=== PATIENT | male | born 1950 | race Caucasian/White ===

== ENCOUNTER 2025-03-23 22:35 | Inpatient (IN) | payer MEDICARE, MEDICAID ==
[~2025-03-23] VITALS: Ht 152.4 cm; Wt 40.4 kg
[~2025-03-23 22:35] MED LIST: AMLO5TAB88 MT; ATOR-2 PO; GLIP5TAB22 PO; TAMS-54 PO
[2025-03-23 23:36] LABS: BASOPHILS % 0.6 % (0.0-2.0); EOSINOPHILS % 1.0 % (0.0-5.0); HEMATOCRIT. 45.1 % (42.0-52.0); HEMOGLOBIN. 14.8 g/dL (14.0-18.0); LYMPHOCYTES % 13.5 % (20.0-50.0); MEAN PLATELET VOLUME 7.9 fl (7.4-10.4); MONOCYTES % 5.9 % (2.0-8.0); NEUTROPHILS % 79.0 % (40.0-76.0); PLATELET 402 x1000/uL (130-400); RED BLOOD CELL COUNT 5.08 mill/uL (4.7-6.1); RED CELL DISTRIBUTION WIDTH 14.9 % (11.6-14.6)
[2025-03-23 23:56] LABS: UREA NITROGEN BLOOD 55 mg/dL (9-23)
[2025-03-23 23:57] LABS: ETHANOL BLOOD < 10 mg/dL (<10)
[2025-03-23 23:58] LABS: PHOSPHORUS 2.8 mg/dL (2.5-4.9)
[2025-03-24 00:06] LABS: CREATININE 1.7 mg/dL (0.6-1.3)
[2025-03-24 00:09] LABS: TROPONIN I HIGH SENSITIVITY 57 ng/L (3.0-53)
[2025-03-24] MEDS: SODIUM CHLORIDE 0.9% (SEPSIS BOLUS) IV ONE (00:17)
[2025-03-24] MEDS: PIPERACILLIN/TAZO 3.375G/50ML 50 ML IV SCH ×2 (00:21→05:49)
[2025-03-24] MEDS: VANCOMYCIN 1G PREMIX 200 ML IV NR (01:19)
[2025-03-24 01:36] LABS: INR 1.0
[2025-03-24] MEDS ORDERED: IPRATROPIUM/ALBUTEROL 0.5-3(2.5)MG/3ML NEB HHN PRN (03:15)
[2025-03-24] MEDS ORDERED: CLONIDINE 0.1MG TABLET PO PRN (03:15)
[2025-03-24] MEDS ORDERED: MAGNESIUM/ALUMINUM HYDROXIDE/SIMETHICONE 30ML UDC PO PRN (03:15)
[2025-03-24] MEDS ORDERED: ONDANSETRON HCL 4MG/2ML INJ IV PRN (03:15)
[2025-03-24] MEDS ORDERED: GUAIFENESIN 200MG/10ML SUGAR FREE UDC PO PRN (03:15)
[2025-03-24] MEDS ORDERED: DOCUSATE SODIUM 100MG CAPSULE PO PRN (03:15)
[2025-03-24] MEDS ORDERED: DEXTROSE 50% WATER 50ML SYRINGE IV PRN (03:15)
[2025-03-24] MEDS ORDERED: ACETAMINOPHEN 325MG TABLET PO PRN ×2 (03:15)
[2025-03-24] MEDS: ACETAMINOPHEN 1000 MG/100 ML IV NR (03:52)
[2025-03-24 05:33] VITALS: BP 130/78; PULSE 90; RESP 20; TEMP 36.9
[2025-03-24] MEDS: DEXTROSE 5% WATER 1,000 ML IV ONE (05:49)
[2025-03-24 06:14] LABS: HEMATOCRIT. 41.5 % (42.0-52.0); HEMOGLOBIN. 13.3 g/dL (14.0-18.0); MEAN PLATELET VOLUME 7.8 fl (7.4-10.4); PLATELET 295 x1000/uL (130-400); RED BLOOD CELL COUNT 4.60 mill/uL (4.7-6.1); RED CELL DISTRIBUTION WIDTH 15.1 % (11.6-14.6)
[2025-03-24] MEDS: BLOOD SUGAR DIAGNOSTIC STRIP TEST SCH (06:14)
[2025-03-24 06:27] LABS: CREATININE 1.7 mg/dL (0.6-1.3); TRIGLYCERIDE 74.0 mg/dL (0-150); UREA NITROGEN BLOOD 45.0 mg/dL (9-23)
[2025-03-24 06:28] LABS: LDL CHOLESTEROL 45.0 mg/dL (5-100)
[2025-03-24 06:38] LABS: LACTIC ACID 3.0 mmol/L (0.4-2.0)
[2025-03-24] MEDS: INSULIN LISPRO 100 UNITS/ML SUBCUT SCH (06:45)
[2025-03-24 06:51] LABS: T4 FREE 1.26 ng/dL (0.89-1.76)
[2025-03-24 08:00] VITALS: BP 124/91; PULSE 81; RESP 18; TEMP 36.4; O2SAT 100
[2025-03-24] MEDS: PANTOPRAZOLE SODIUM 40 MG/VIAL IV SCH (09:19)
[2025-03-24] MEDS: AMLODIPINE 5MG TABLET PO SCH (09:20)
[2025-03-24] MEDS: TAMSULOSIN HCL 0.4MG SR CAPSULE PO SCH (09:20)
[2025-03-24] MEDS: ENOXAPARIN 30MG/0.3ML SYR SUBCUT SCH (09:21)
[2025-03-24 12:00] VITALS: BP 118/76; PULSE 85; RESP 17; TEMP 36.5; O2SAT 98
[2025-03-24] MEDS: POTASSIUM CHLORIDE 20MEQ TABLET SR PO SCH (13:20)
[2025-03-24 15:41] LABS: BAND% 3.0 % (1.0-6.0); EOSINOPHILS % MANUAL 1.0 % (0.0-5.0); LYMPHOCYTES % MANUAL 10.0 % (20.0-50.0); MONOCYTES % MANUAL 6.0 % (2.0-8.0); NEUTROPHILS % MANUAL 80.0 % (45.0-75.0); PLATELET ESTIMATE NORMAL
[2025-03-24 16:00] VITALS: BP 106/60; PULSE 70; RESP 18; TEMP 36.4; O2SAT 100
[2025-03-24] MEDS: FINASTERIDE 5MG TABLET PO SCH (17:10)
[2025-03-24 20:00] VITALS: BP 130/70; PULSE 62; RESP 18; TEMP 36.2; O2SAT 97
[2025-03-24] MEDS: ATORVASTATIN CALCIUM 40MG TABLET PO SCH (21:29)
[2025-03-24] MEDS: MIRTAZAPINE 15MG TABLET PO SCH (21:29)
[2025-03-25] VITALS: BP 141/65; PULSE 68; RESP 18; TEMP 36.3; O2SAT 96
[2025-03-25 04:00] VITALS: BP 124/65; PULSE 74; RESP 18; TEMP 36.3; O2SAT 100
[2025-03-25 08:00] VITALS: BP 128/60; PULSE 72; RESP 18; TEMP 36.8; O2SAT 100
[2025-03-25] MEDS: VANCOMYCIN 500MG/100ML IV SCH (08:31)
[2025-03-25 09:02] LABS: BASOPHILS % 0.6 % (0.0-2.0); EOSINOPHILS % 5.2 % (0.0-5.0); HEMATOCRIT. 40.8 % (42.0-52.0); HEMOGLOBIN. 13.2 g/dL (14.0-18.0); LYMPHOCYTES % 16.9 % (20.0-50.0); MEAN PLATELET VOLUME 8.3 fl (7.4-10.4); MONOCYTES % 6.2 % (2.0-8.0); NEUTROPHILS % 71.1 % (40.0-76.0); PLATELET 240 x1000/uL (130-400); RED BLOOD CELL COUNT 4.48 mill/uL (4.7-6.1); RED CELL DISTRIBUTION WIDTH 15.3 % (11.6-14.6)
[2025-03-25 09:33] LABS: CREATININE 1.7 mg/dL (0.6-1.3); UREA NITROGEN BLOOD 49 mg/dL (9-23)
[2025-03-25 09:35] LABS: ASPARTATE AMINOTRANSFERASE 23 IU/L (<34); BILIRUBIN DIRECT 0.2 mg/dL (<=3.0); BILIRUBIN TOTAL 0.5 mg/dL (0.1-1.0); PROTEIN TOTAL 5.5 g/dL (6.0-8.3)
[2025-03-25 12:00] VITALS: BP 125/57; PULSE 73; RESP 17; TEMP 36.7; O2SAT 96
[2025-03-25 16:00] VITALS: BP 108/54; PULSE 70; RESP 18; TEMP 36.5; O2SAT 96
[2025-03-25 20:00] VITALS: BP 153/64; PULSE 69; RESP 19; TEMP 36.5; O2SAT 96
[2025-03-26] VITALS: BP 155/68; PULSE 60; RESP 18; TEMP 36.2; O2SAT 100
[2025-03-26 04:00] VITALS: BP 150/63; PULSE 69; RESP 20; TEMP 36.3; O2SAT 98
[2025-03-26] MEDS: DEXTROSE 5% WATER 1,000 ML IV SCH (06:50)
[2025-03-26 08:00] VITALS: BP 142/60; PULSE 65; RESP 18; TEMP 36.4; O2SAT 96
[2025-03-26 09:16] LABS: BASOPHILS % 0.9 % (0.0-2.0); EOSINOPHILS % 6.2 % (0.0-5.0); HEMATOCRIT. 38.7 % (42.0-52.0); HEMOGLOBIN. 12.8 g/dL (14.0-18.0); LYMPHOCYTES % 20.1 % (20.0-50.0); MEAN PLATELET VOLUME 8.1 fl (7.4-10.4); MONOCYTES % 6.1 % (2.0-8.0); NEUTROPHILS % 66.7 % (40.0-76.0); PLATELET 250 x1000/uL (130-400); RED BLOOD CELL COUNT 4.35 mill/uL (4.7-6.1); RED CELL DISTRIBUTION WIDTH 14.7 % (11.6-14.6)
[2025-03-26 09:30] LABS: CREATININE 1.7 mg/dL (0.6-1.3); UREA NITROGEN BLOOD 39.0 mg/dL (9-23)
[2025-03-26 12:00] VITALS: BP 140/81; PULSE 60; RESP 18; TEMP 36.5; O2SAT 97
[2025-03-26 16:00] VITALS: BP 140/61; PULSE 60; RESP 17; TEMP 36.6; O2SAT 98
[2025-03-26 20:00] VITALS: BP 123/55; PULSE 55; RESP 16; TEMP 36.2; O2SAT 95
[2025-03-26 21:02] LABS: CLARITY URINE TURBID (CLEAR); COLOR URINE YELLOW (YELLOW); GLUCOSE URINE NEGATIVE (NEGATIVE); KETONES URINE NEGATIVE (NEGATIVE); LEUKOCYTE ESTERASE URINE TRACE (NEGATIVE); NITRITE URINE NEGATIVE (NEGATIVE); OCCULT BLOOD URINE 3+ (NEGATIVE); PH URINE 5.5 (4.5-8.0); PROTEIN URINE 2+ (NEGATIVE); SPECIFIC GRAVITY URINE 1.024 (1.005-1.030); UROBILINOGEN URINE 1.0 E.U./dL (0.2-1.0)
[2025-03-26 21:24] LABS: URIC ACID CRYSTALS URINE 1+ /lpf
[2025-03-26 21:25] LABS: BACTERIA URINE TRACE; RBC URINE TNTC /hpf (0-2); SQUAMOUS EPITHELIAL CELL URINE FEW /lpf (RARE/1+); WBC URINE 0-2 /hpf (0-2)
[2025-03-27] VITALS: BP 107/56; PULSE 60; RESP 18; TEMP 36.3; O2SAT 97
[2025-03-27 04:00] VITALS: BP 140/62; PULSE 60; RESP 18; TEMP 36.4; O2SAT 96
[2025-03-27 08:00] VITALS: BP 151/89; PULSE 67; RESP 15; TEMP 36.3; O2SAT 96
[2025-03-27 08:01] LABS: BASOPHILS % 0.7 % (0.0-2.0); EOSINOPHILS % 5.6 % (0.0-5.0); HEMATOCRIT. 36.6 % (42.0-52.0); HEMOGLOBIN. 12.5 g/dL (14.0-18.0); LYMPHOCYTES % 18.1 % (20.0-50.0); MEAN PLATELET VOLUME 8.1 fl (7.4-10.4); MONOCYTES % 7.3 % (2.0-8.0); NEUTROPHILS % 68.3 % (40.0-76.0); PLATELET 208 x1000/uL (130-400); RED BLOOD CELL COUNT 4.19 mill/uL (4.7-6.1); RED CELL DISTRIBUTION WIDTH 14.3 % (11.6-14.6)
[2025-03-27 08:04] LABS: CREATININE 1.6 mg/dL (0.6-1.3); UREA NITROGEN BLOOD 38.0 mg/dL (9-23)
[2025-03-27 12:00] VITALS: BP 163/80; PULSE 64; RESP 14; TEMP 36.2; O2SAT 95
[2025-03-27] MEDS: VANCOMYCIN 750MG/150ML (BAXTER) IV SCH (13:42)
[2025-03-27] MEDS: DEXTROSE 5% WATER 1,000 ML IV SCH (15:05)
[2025-03-27 16:00] VITALS: BP_SYST 130; BP_SYST 161; BP_DIAS 65; BP_DIAS 78; PULSE 65; RESP 16; TEMP 36.2; TEMP 36.5; O2SAT 95
[2025-03-27 20:00] VITALS: BP 129/69; PULSE 79; RESP 18; TEMP 36.9; O2SAT 97
[2025-03-27] MEDS: AMLODIPINE 5MG TABLET PO SCH (20:53)
[2025-03-28] VITALS: BP 132/80; PULSE 90; RESP 20; TEMP 36.7; O2SAT 97
[2025-03-28 04:00] VITALS: BP 118/60; PULSE 80; RESP 20; TEMP 37; O2SAT 97
[2025-03-28 06:26] LABS: BASOPHILS % 0.6 % (0.0-2.0); EOSINOPHILS % 5.2 % (0.0-5.0); HEMATOCRIT. 38.4 % (42.0-52.0); HEMOGLOBIN. 13.1 g/dL (14.0-18.0); LYMPHOCYTES % 20.0 % (20.0-50.0); MEAN PLATELET VOLUME 8.4 fl (7.4-10.4); MONOCYTES % 10.3 % (2.0-8.0); NEUTROPHILS % 63.9 % (40.0-76.0); PLATELET 193 x1000/uL (130-400); RED BLOOD CELL COUNT 4.40 mill/uL (4.7-6.1); RED CELL DISTRIBUTION WIDTH 14.2 % (11.6-14.6)
[2025-03-28 06:41] LABS: CREATININE 1.4 mg/dL (0.6-1.3); UREA NITROGEN BLOOD 24.0 mg/dL (9-23)
[2025-03-28 08:00] VITALS: BP 124/52; PULSE 56; RESP 18; TEMP 36.4; O2SAT 97
[2025-03-28] MEDS: VANCOMYCIN 500MG/100ML IV SCH (11:55)
[2025-03-28 12:00] VITALS: BP 118/49; PULSE 64; RESP 18; TEMP 36.5; O2SAT 97
[2025-03-28 16:00] VITALS: BP 156/66; PULSE 55; RESP 18; TEMP 36.3; O2SAT 97
[2025-03-28 20:00] VITALS: BP 112/66; PULSE 88; RESP 20; TEMP 36.7; O2SAT 98
[2025-03-29] VITALS: BP 113/60; PULSE 82; RESP 20; TEMP 36.7; O2SAT 98
[2025-03-29 04:00] VITALS: BP 106/58; PULSE 71; RESP 20; TEMP 36.9; O2SAT 97
[2025-03-29 08:00] VITALS: BP 131/65; PULSE 70; RESP 18; TEMP 36.5; O2SAT 99
[2025-03-29 08:40] LABS: BASOPHILS % 0.9 % (0.0-2.0); EOSINOPHILS % 4.9 % (0.0-5.0); HEMATOCRIT. 36.1 % (42.0-52.0); HEMOGLOBIN. 12.6 g/dL (14.0-18.0); LYMPHOCYTES % 19.7 % (20.0-50.0); MEAN PLATELET VOLUME 8.5 fl (7.4-10.4); MONOCYTES % 7.8 % (2.0-8.0); NEUTROPHILS % 66.7 % (40.0-76.0); PLATELET 204 x1000/uL (130-400); RED BLOOD CELL COUNT 4.20 mill/uL (4.7-6.1); RED CELL DISTRIBUTION WIDTH 13.8 % (11.6-14.6)
[2025-03-29 09:00] LABS: CREATININE 1.4 mg/dL (0.6-1.3)
[2025-03-29 09:01] LABS: UREA NITROGEN BLOOD 23.0 mg/dL (9-23)
[2025-03-29 12:00] VITALS: BP 141/71; PULSE 81; RESP 18; TEMP 35.9; O2SAT 98
[2025-03-29] MEDS ORDERED: AMLO5TAB88 PO (14:14)
[2025-03-29] MEDS ORDERED: MIRT-89 PO (14:14)
[2025-03-29] MEDS ORDERED: FINA5TAB11 PO (14:14)
[2025-03-29] MEDS ORDERED: NITR-87 MT (14:14)
[2025-03-29 14:46] VITALS: BP 115/76; PULSE 71; TEMP 98; O2SAT 97
[2025-03-29 16:00] VITALS: BP 123/87; PULSE 68; RESP 18; TEMP 36.9; O2SAT 98
== END 2025-03-29 19:35 | DRG 871 ==
LOC: ER 22:35 → 8WST 03-24 02:57 → EDBEDREQTM 03-24 03:00 → EDBEDREQDT 03-24 03:00 → EDBEDREQ 03-24 03:00 → ENRESERV 03-24 03:15
PROVIDERS: ADMIT Hospitalist; ATTEND Hospitalist
DX: A41.9 Sepsis, unspecified organism (principal); I21.A1 Myocardial infarction type 2; E87.0 Hyperosmolality and hypernatremia; N17.9 Acute kidney failure, unspecified; I45.2 Bifascicular block; N13.8 Other obstructive and reflux uropathy; N13.6 Pyonephrosis; E46 Unspecified protein-calorie malnutrition; Z68.1 Body mass index [BMI] 19.9 or less, adult; N40.1 Benign prostatic hyperplasia with lower urinary tract symptoms; E11.9 Type 2 diabetes mellitus without complications; D64.9 Anemia, unspecified; G31.84 Mild cognitive impairment of uncertain or unknown etiology; R65.20 Severe sepsis without septic shock; L89.211 Pressure ulcer of right hip, stage 1; I10 Essential (primary) hypertension; E87.6 Hypokalemia; E86.0 Dehydration; J44.9 Chronic obstructive pulmonary disease, unspecified; F20.9 Schizophrenia, unspecified; Z79.899 Other long term (current) drug therapy; Z79.84 Long term (current) use of oral hypoglycemic drugs; Z74.01 Bed confinement status; Z88.8 Allergy status to other drugs, medicaments and biological substances
CPT/HCPCS: 36415; 71045; 76770; 76857; 80048; 80061; 80076; 80202; 80320; 81003; 82550; 82962; 83036; 83605; 83735; 83880; 84100; 84145; 84153; 84439; 84443; 84484; 85025; 86850; 86900; 87077; 93005; 96365; 96367; 99291; A4606; J1650; J1815; J2470; J2543; J3370; J7070; G0480; J0131